=== PATIENT | female | born 1990 | race Caucasian/White ===

== ENCOUNTER 2019-08-23 11:23 | Emergency (ER) | payer OTHER, SELFPAY ==
[2019-08-23 11:27] VITALS: BP 121/80; PULSE 97; RESP 18; TEMP 37.1; O2SAT 99
--- NOTE | 2019-08-23 11:49 | ED.GENADULT ---
HPI - General Adult General Chief complaint: Unspecified Stated complaint: mono or strep??? Time Seen by Provider: 08/23/19 11:37 Source: patient Mode of arrival: ambulatory Limitations: no limitations History of Present Illness HPI narrative: This patient is a 29 year old female who presents for evaluation of sore throat. Two weeks ago she she was exposed to someone who was diagnosed with mono. She is concerned because she develop sore throat 2 days ago. She has mild discomfort with swallowing and she states she saw yellow spot on her tonsils. She denies fever, chills, abdominal pain, nausea or vomiting. She does have a runny nose but she states this may be due to allergies Onset (ago): day(s) (2) Related Data Allergies Allergy/AdvReac Type Severity Reaction Status Date / Time No Known Allergies Allergy Verified 08/23/19 11:31 Review of Systems Review of Systems: All systems reviewed & are unremarkable except as noted in HPI and below Constitutional: Constitutional: Denies chills and Denies fever(s) ENT: Reports nasal congestion and Reports sore throat Respiratory: Respiratory: Denies cough and Denies dyspnea Gastrointestinal: Gastrointestinal: Denies abdominal pain, Denies nausea and Denies vomiting Neurologic: Denies weakness PMFSH Past Medical History Medical History (Updated 08/23/19 @ 13:05 by Samia Henson MD) Patient denies medical problems Social History Social History (Updated 08/23/19 @ 18:28 by Samia Henson MD) Smoking status: Never smoker Gender identity (if verbalized by the patient): Female Exam Const: General: no acute distress and alert Orientation/consciousness: patient oriented x3 HENMT: Ears: external ears normal and TM's normal bilaterally Face and sinus: face symmetric Mouth: Yes lip normal, Yes tongue normal and Yes moist mucous membranes Teeth and gingiva: dentition normal Throat: posterior oropharynx normal, tonsils normal and uvula midline Eyes: Pupils: Equal, round and reactive pupils present EOM: EOMs intact bilaterally Neck: Neck: no lymphadenopathy Resp: Effort & Inspection: normal respiratory effort Skin: General skin exam: normal color Rashes: no rashes Neuro: General: patient oriented x3 and moves all extremities Course Vital Signs Vital signs: Vital Signs Temperature 98.7 F 08/23/19 11:27 Pulse Rate 97 08/23/19 11:27 Respiratory Rate 18 08/23/19 11:27 Blood Pressure 121/80 08/23/19 11:27 Pulse Oximetry 99 08/23/19 11:27 Temperature 98.7 F 08/23/19 11:27 Pulse Rate 72 08/23/19 13:15 Respiratory Rate 16 08/23/19 13:15 Blood Pressure 108/72 08/23/19 13:15 Pulse Oximetry 100 08/23/19 13:15 Medical Decision Making Vital Signs Vital Signs: Vital Signs Temperature 98.7 F 08/23/19 11:27 Pulse Rate 97 08/23/19 11:27 Respiratory Rate 18 08/23/19 11:27 Blood Pressure 121/80 08/23/19 11:27 Pulse Oximetry 99 08/23/19 11:27 Temperature 98.7 F 08/23/19 11:27 Pulse Rate 72 08/23/19 13:15 Respiratory Rate 16 08/23/19 13:15 Blood Pressure 108/72 08/23/19 13:15 Pulse Oximetry 100 08/23/19 13:15 Lab Data Labs: Lab Results 08/23/19 Range/Units 11:43 Monoscreen Negative (Negative) Strep Screen Presumptive Negative *(Reference Range: Negative)* Discharge Plan Discharge Clinical Impression: Sore throat (viral) Patient Disposition: Home, Self-Care Condition: Stable Instructions: Pharyngitis (ED) Follow-up/Referrals: PHYSICIAN,[employer] [Primary Care Provider] - Liseth Sorto DO [Physician] - Discharge Date/Time: 08/23/19 13:16
[2019-08-23 12:43] LABS: Monoscreen Negative (Negative); Negative Monotest Control Negative (Negative); Positive Monotest Control Positive (Positive)
[2019-08-23 13:15] VITALS: BP 108/72; PULSE 72; RESP 16; O2SAT 100
== END 2019-08-23 13:16 | disposition home or self-care (01) ==
PROVIDERS: Emergency Provider General Practice
DX: J02.9 Acute pharyngitis, unspecified (principal)
CPT/HCPCS: 36415; 86308; 87081; 87880; 99283

== ENCOUNTER 2020-05-13 09:11 | Emergency (ER) | payer OTHER, SELFPAY ==
[2020-05-13 09:33] VITALS: BP 113/53; PULSE 79; RESP 16; TEMP 37.4; O2SAT 100
[2020-05-13 09:37] VITALS: BP 113/53; PULSE 79; RESP 16; TEMP 37.4; O2SAT 100
--- NOTE | 2020-05-13 10:36 | ED.URI ---
HPI - URI/Sore Throat General Chief Complaint: Upper Respiratory Infection Stated Complaint: runny nose/sore throat/ear pain Time Seen by Provider: 05/13/20 09:45 Source: patient and RN notes reviewed Mode of arrival: ambulatory Limitations: no limitations History of Present Illness HPI Narrative: Patient presents today complaining of a 2-day history of sore throat with bilateral ear pain, left greater than right, rhinorrhea, and a sore to the left side of the roof of her mouth. States the painful roof of her mouth is the most painful thing that she is currently complaining of. States she also has a waxing and waning headache that is currently absent. Denies fever, cough, congestion, nausea, vomiting, diarrhea, loss of taste or smell. She has been taking Zicam, Chloraseptic, peroxide swishes, and Advil. She is very concerned that she may have COVID-19. MD elicited complaint: sore throat and rhinorrhea Related Data Home Medications Medication Instructions Recorded Confirmed No Home Medications 05/13/20 05/13/20 Allergies Allergy/AdvReac Type Severity Reaction Status Date / Time No Known Allergies Allergy Verified 08/23/19 11:31 Review of Systems Review of Systems: Narrative: CONSTITUTIONAL: Denies body aches, fever, chills, or sweats. EYES: Denies visual changes, redness, or discharge. ENT: Denies congestion. + Rhinorrhea, sore throat, bilateral ear pain, pain at the roof of her mouth CARDIOVASCULAR: Denies chest pain, palpitations, or edema. RESPIRATORY: Denies cough or dyspnea. GASTROINTESTINAL: Denies abdominal pain, nausea, vomiting, or diarrhea. GENITOURINARY: Denies dysuria or hematuria. SKIN: Denies rash, itching, or wounds. MUSCULOSKELETAL: Denies back pain, joint pain, or myalgia. NEUROLOGIC: Denies numbness, tingling, or weakness. + Headache?resolved PSYCH: Denies depression or anxiety. PENDING SALE TO [facility] Past Medical History Medical History (Updated 05/13/20 @ 10:39 by Phylicia Brady, [facility], ) Patient denies medical problems Social History Social History (Updated 08/23/19 @ 18:28 by Samia Henson MD) Smoking status: Never smoker Gender identity (if verbalized by the patient): Female Comments At time of signature, I have reviewed and agree with nursing past medical, surgical, social and family history unless otherwise noted. Please see nursing chart for further information. There is no relevant family history pertinent to the presenting complaint Exam Narrative: Exam Narrative: GENERAL: Well-appearing, well-nourished, and in no acute distress. HEAD: Normocephalic, atraumatic. EYES: EOMI. No redness or drainage. Conjunctivae normal. ENT: Mucous membranes pink and moist. Nares clear. No rhinorrhea. TMs normal bilaterally. Throat normal. Uvula midline. Patient has a 1 x 2 cm superficial ulceration to the left side of the hard palate. It is surrounded and mild erythema but no edema or purulent discharge. It appears to be an aphthous ulcer. NECK: Normal AROM. Supple. Left anterior cervical chain lymphadenopathy. CHEST: No respiratory distress. Clear to auscultation. HEART: Regular rate and rhythm. No murmur appreciated. Normal peripheral pulses. EXTREMITIES: Normal range of motion. No edema. SKIN: Warm, dry, no rash. Capillary refill normal. Normal skin turgor. NEURO: No focal deficits. Alert and oriented x3. Gait steady. PSYCH: Normal affect. No signs of depression or anxiety. Course Course Emergency Course: Patient insists on a rapid COVID-19 test today. Rates of false negatives of this test, especially given that she has only had symptoms for 2 days. Vital Signs Vital signs: Vital Signs Temperature 99.3 F 05/13/20 09:33 Pulse Rate 79 05/13/20 09:33 Respiratory Rate 16 05/13/20 09:33 Blood Pressure 113/53 L 05/13/20 09:33 Pulse Oximetry 100 05/13/20 09:33 Temperature 99.3 F 05/13/20 09:37 Pulse Rate 79 05/13/20 09:37 Respiratory Rate 16 05/13/20 0
== END 2020-05-13 10:54 | disposition home or self-care (01) ==
PROVIDERS: Emergency Provider Nurse Practitioner
DX: B34.9 Viral infection, unspecified (principal); Z20.822 Contact with and (suspected) exposure to COVID-19
CPT/HCPCS: 87081; 87426; 87880; 99213; C9803; G0463